=== PATIENT | female | born 1930 | race Hispanic/Latino ===

== ENCOUNTER → 2018-01-29 | Outpatient (CLI) | payer MEDICARE ==
[~2018-01-29] MED LIST: IOHEXOL-350 75 ML VIAL IV ONE
== END | disposition home or self-care (01) ==
LOC: RAH 08:26
PROVIDERS: ATTEND Family Medicine
DX: R22.41 Localized swelling, mass and lump, right lower limb (principal)
CPT/HCPCS: 73702; Q9967

== ENCOUNTER 2018-02-25 07:06 | Day surgery (SDC) | payer MEDICARE ==
[~2018-02-25] VITALS: Ht 147.3 cm; Wt 53.1 kg
[2018-02-25 07:40] VITALS: BP 151/70
[2018-02-25 07:57] LABS: BASOPHILS % (AUTO) 0.3 % (0.0-5.0); EOSINOPHILS % (AUTO) 1.5 % (0.0-8.0); HEMATOCRIT 34.3 % (36-48); LYMPHOCYTES % (AUTO) 16.8 % (21.0-51.0); MEAN CORPUSCULAR HGB CONC 33.4 g/dL (32.0-36.0); MEAN CORPUSCULAR VOLUME 89.8 fL (79-99); MONOCYTES % (AUTO) 10.3 % (3.0-13.0); NEUTROPHILS % (AUTO) 71.1 % (40.0-77.0); PLATELET COUNT (AUTO) 179 K/uL (130-400); RED BLOOD CELL COUNT(AUTO) 3.82 MIL/uL (4.00-5.50); RED CELL DISTRIBUTION WIDTH 13.9 % (11.0-15.5); WHITE BLOOD COUNT (AUTO) 5.8 K/uL (4.8-10.8)
[2018-02-25 08:07] LABS: CREATININE 1.1 mg/dL (0.5-1.5); POTASSIUM 4.5 mmol/L (3.5-5.1)
[2018-02-25 08:27] LABS: INR 1.05 (0.85-1.15); PARTIAL THROMBOPLASTIN TIME 30.6 SEC (26.3-35.5)
[2018-02-25] MEDS ORDERED: SODIUM CHLORIDE 0.9% 1000ML 1,000 ML IV ONE (08:50)
[2018-02-25] MEDS ORDERED: FENTANYL CITRATE PF 50 MCG/1 ML 2ML VIAL ONE (09:21)
[2018-02-25] MEDS ORDERED: MIDAZOLAM HCL 1 MG/ML 2ML VIAL ONE (09:21)
[2018-02-25 09:52] VITALS: BP 151/54
[2018-02-25 10:08] VITALS: BP 149/64
[2018-02-25 10:24] VITALS: BP 147/56
[2018-02-25 10:40] VITALS: BP 148/64
== END 2018-02-25 10:50 | disposition home or self-care (01) ==
LOC: RAH 07:06 → EDSTATUS 08:00 → RAH 10:50
PROVIDERS: ATTEND Internal Medicine Hematology & Oncology
DX: R22.41 Localized swelling, mass and lump, right lower limb (principal); I10 Essential (primary) hypertension; E78.5 Hyperlipidemia, unspecified; G47.00 Insomnia, unspecified; Z98.890 Other specified postprocedural states; Z90.710 Acquired absence of both cervix and uterus; Z79.01 Long term (current) use of anticoagulants; Z79.899 Other long term (current) drug therapy; Z88.8 Allergy status to other drugs, medicaments and biological substances; Z80.9 Family history of malignant neoplasm, unspecified; Z82.49 Family history of ischemic heart disease and other diseases of the circulatory system
CPT/HCPCS: 27040; 36415; 77012; 80048; 82948 ×2; 85025; 85610; 85730; 87071; 87205; 88304; A4606; J7030; J2250; J3010

== ENCOUNTER 2018-05-06 08:59 | Day surgery (SDC) | payer MEDICARE ==
[2018-05-03 15:44] LABS: BASOPHILS % (AUTO) 0.3 % (0.0-5.0); EOSINOPHILS % (AUTO) 1.5 % (0.0-8.0); HEMATOCRIT 37.1 % (36-48); MEAN CORPUSCULAR HEMOGLOBIN 28.6 pg (27.0-33.0); MEAN CORPUSCULAR HGB CONC 32.7 g/dL (32.0-36.0); MEAN CORPUSCULAR VOLUME 87.4 fL (79-99); MONOCYTES % (AUTO) 7.9 % (3.0-13.0); NEUTROPHILS % (AUTO) 75.3 % (40.0-77.0); PLATELET COUNT (AUTO) 198 K/uL (130-400); RED BLOOD CELL COUNT(AUTO) 4.25 MIL/uL (4.00-5.50); RED CELL DISTRIBUTION WIDTH 14.5 % (11.0-15.5); WHITE BLOOD COUNT (AUTO) 8.1 K/uL (4.8-10.8)
[2018-05-03 15:46] LABS: BILIRUBIN,URINE Negative (NEGATIVE); COLOR,URINE Yellow (YELLOW); GLUCOSE, URINE (UA) Negative (NEGATIVE); KETONES,URINE Trace mg/dL (NEGATIVE); LEUKOCYTE ESTERASE ,URINE Negative (NEGATIVE); NITRATE,URINE Negative (NEGATIVE); OCCULT BLOOD,URINE Negative (NEGATIVE); PROTEIN,URINE 300 (NEGATIVE)
[2018-05-03 15:48] LABS: APPEARANCE,URINE CLEAR (CLEAR)
[2018-05-03 15:52] LABS: BACTERIA,URINE Rare /HPF (None Seen); RBC,URINE 0-1 /HPF (0-1); WBC,URINE 0-1 /HPF (0-1)
[2018-05-03 15:53] LABS: SQUAMOUS EPITHELIAL CELL,UR Rare /HPF (0-2)
[2018-05-03 16:03] LABS: CREATININE 0.9 mg/dL (0.5-1.5); POTASSIUM 4.3 mmol/L (3.5-5.1)
[2018-05-03 17:22] VITALS: BP 181/76
[2018-05-06] VITALS (18 sets, daily range): BP systolic 140–171; BP diastolic 57–78
[~2018-05-06] VITALS: Ht 162.6 cm; Wt 51.7 kg
[~2018-05-06 08:59] MED LIST changes: +AMLO5TAB9 PO; +ASPI-1181 PO; +GLIP5TAB11 PO; -IOHEXOL-350 75 ML VIAL IV ONE; +LABE100T5 PO; +LISI40TA4 PO; +ROSU5TAB11 PO; +TYLENOL PO; +[UNRECOGNIZED DRUG - OTHER] PO
--- NOTE | 2018-05-06 09:47 | NUR ---
ACETAMINOPHEN ALLERGY PER SON, PT NOT ALLERGIC TO TYLENOL. PT IS TAKING TYLENOL HOME MED.
[2018-05-06] MEDS: CEFAZOLIN SODIUM 1 GM VIAL IVP SCH ×2 (10:00→13:52)
[2018-05-06] MEDS ORDERED: SODIUM CHLORIDE 0.9% 1000ML 1,000 ML IV ONE (10:12)
[2018-05-06] MEDS ORDERED: CEFAZOLIN SODIUM 1 GM VIAL ONE (12:38)
[2018-05-06] MEDS ORDERED: LIDOCAINE PF 2% 5ML ABBOJECT ONE (13:09)
[2018-05-06] MEDS ORDERED: PROPOFOL 10 MG/ML 20ML VIAL IV ONE ×2 (13:10→16:01)
[2018-05-06] MEDS ORDERED: ONDANSETRON HCL 4 MG/2 ML VIAL ONE (13:10)
[2018-05-06] MEDS ORDERED: ROCURONIUM 10MG/1ML SYR 10 MG/ML ML ONE ×2 (13:10→14:24)
[2018-05-06] MEDS ORDERED: FENTANYL CITRATE PF 50 MCG/1 ML 2ML VIAL ONE (14:25)
[2018-05-06] MEDS ORDERED: GLYCOPYRROLATE 1 MG/5 ML SYRINGE ONE (15:27)
[2018-05-06] MEDS ORDERED: NEOSTIGMINE 5MG/5ML SYR IV ONE ×2 (15:27→16:03)
[2018-05-06] MEDS ORDERED: TRAM1TAB PO (15:56)
[2018-05-06] MEDS ORDERED: CEPH500B PO (15:56)
[2018-05-06] MEDS ORDERED: NALOXONE HCL 0.4 MG/1 ML ML ONE (16:24)
--- NOTE | 2018-05-06 17:04 | NUR ---
LLUVIA BARRETT TO SEE PT, PT ASSESSED, OKAYED TO TRANSFER TO DAY PT. Addendum: 05/06/18 at 1705 by LEI SANDOVAL RN RN Amended: Links added.
--- NOTE | 2018-05-06 17:05 | NUR ---
NEW RECEIVED PT FROM PACU, S/P RIGHT HIP OPEN BX, DRESSING TO RIGHT HIP DRY AND INTACT, NEUROVACULAR CHECK WNL. VS STABLE ON ARRIVAL . PT SEEMED DISORIENTED. PT SPEAKING IN SMALL PHRASES. PT ORIENTED TO NAME ONLY. FAMILY AT BEDSIDE. STATES SHES VERY SENSITIVE WITH ANESTHESIA.
--- NOTE | 2018-05-06 17:46 | NUR ---
DC DC INSTRUCTIONS GIVEN TO PT'S AFSHAN AMIN, INSTRUCTED TO F/U WITH DR. MARCUS 05/09/18,INSTRUCTED ON NEW MED REGIMEN AND POSSIBLE SIDE EFFECTS. PT CONTINUES DISORIENTED AND VERY DROWSY, VS STABLE AT THIS TIME, AT BASELINE. PT AFSHAN AMIN STATES HIS MOM HAS GOTTEN LIKE THAT BEFORE WITH ANESTHESIA , "IT WILL WORE OFF" , DRESSING TO RIGHT HIP DRY AND INTACT INSTRUCTED TO KEEP CLEAN AND DRY AT ALL TIMES. PT GETTING DRESS WITH HUMID SYSTEM OPERATOR ASSISTANCE AND WILL BE DISCHARGE HOME ONCE READY. PIV REMOVED TO LEFT ARM. SITE ASYMTOMATIC. .
--- NOTE | 2018-05-06 18:05 | NUR ---
IV IVF COMPLETED AT THIS TIME,
--- NOTE | 2018-05-06 18:05 | NUR ---
DC PT DC HOME VIA WC, NO DISTRESS NOTED. ACCOMPANIED BY SON
== END 2018-05-06 18:05 | disposition home or self-care (01) ==
LOC: DAHIP 08:59 → DAH 08:59 → UNDOADMIN 08:59 → EDSTATUS 14:45 → DAH 18:05
PROVIDERS: ATTEND Orthopaedic Surgery
DX: M85.58 Aneurysmal bone cyst, other site (principal); R22.41 Localized swelling, mass and lump, right lower limb; Z86.73 Personal history of transient ischemic attack (TIA), and cerebral infarction without residual deficits; E78.5 Hyperlipidemia, unspecified; F03.90 Unspecified dementia, unspecified severity, without behavioral disturbance, psychotic disturbance, mood disturbance, and anxiety; Z96.641 Presence of right artificial hip joint; Z98.890 Other specified postprocedural states; Z88.8 Allergy status to other drugs, medicaments and biological substances; Z82.49 Family history of ischemic heart disease and other diseases of the circulatory system; Z83.3 Family history of diabetes mellitus; Z79.899 Other long term (current) drug therapy; M25.551 Pain in right hip; I10 Essential (primary) hypertension; E11.9 Type 2 diabetes mellitus without complications; Z79.01 Long term (current) use of anticoagulants; Z79.84 Long term (current) use of oral hypoglycemic drugs
CPT/HCPCS: 27052; 36415; 76000; 80048; 81001; 82948 ×2; 85025; 86850; 86900; 86901; 87070; 87076; 87205; 88304; 88331; 88333; 88341; 88342; A4218; A4649 ×5; A4930 ×2; A6219; A6223; J0690 ×2; J2001; J2310; J2405; J2704 ×2; J2710 ×2; J3010; J3490; J7030

== ENCOUNTER → 2018-06-11 | Outpatient (CLI) | payer MEDICARE ==
[~2018-06-11] MED LIST changes: +CEPH500B PO; +GADODIAMIDE 10 MMOL/20 ML ML IV ONE; +TRAM1TAB PO
== END | disposition home or self-care (01) ==
LOC: RAH 15:28
PROVIDERS: ATTEND Orthopaedic Surgery
DX: K57.90 Diverticulosis of intestine, part unspecified, without perforation or abscess without bleeding (principal); R19.00 Intra-abdominal and pelvic swelling, mass and lump, unspecified site; Z96.641 Presence of right artificial hip joint
CPT/HCPCS: 72197; A9579

== ENCOUNTER 2019-06-26 13:28 | Inpatient (IN) | payer MEDICARE ==
[~2019-06-26] VITALS: Ht 157.5 cm; Wt 58.2 kg
[~2019-06-26 13:28] MED LIST changes: +AMLO-257 PO; -AMLO5TAB9 PO; -ASPI-1181 PO; +ASPI-1443 PO; -GADODIAMIDE 10 MMOL/20 ML ML IV ONE; -ROSU5TAB11 PO; +ROSU5TAB12 PO
[2019-06-26 14:12] LABS: BASOPHILS % (AUTO) 0.1 % (0.0-5.0); EOSINOPHILS % (AUTO) 0.7 % (0.0-8.0); HEMATOCRIT 29.1 % (36-48); LYMPHOCYTES % (AUTO) 8.3 % (21.0-51.0); MEAN CORPUSCULAR HEMOGLOBIN 29.2 pg (27.0-33.0); MEAN CORPUSCULAR HGB CONC 31.6 g/dL (32.0-36.0); MEAN CORPUSCULAR VOLUME 92.4 fL (79-99); MONOCYTES % (AUTO) 7.7 % (3.0-13.0); NEUTROPHILS % (AUTO) 82.8 % (40.0-77.0); PLATELET COUNT (AUTO) 237 K/uL (130-400); RED BLOOD CELL COUNT(AUTO) 3.15 MIL/uL (4.00-5.50); RED CELL DISTRIBUTION WIDTH 15.1 % (11.0-15.5); WHITE BLOOD COUNT (AUTO) 6.8 K/uL (4.8-10.8)
[2019-06-26 14:28] LABS: INR 1.05 (0.85-1.15); PARTIAL THROMBOPLASTIN TIME 29.2 SEC (26.3-35.5); PROTHROMBIN TIME 11.3 SEC (9.6-11.6)
[2019-06-26 14:40] LABS: ALBUMIN 2.1 g/dL (3.5-5.0); BILIRUBIN,TOTAL 0.4 mg/dL (0.2-1.0); CREATININE 2.4 mg/dL (0.5-1.5); POTASSIUM 4.8 mmol/L (3.5-5.1); TOTAL PROTEIN, SERUM 5.1 g/dL (6.0-8.3)
[2019-06-26 14:46] LABS: B-TYPE NATRIURETIC PEPTIDE 314 pg/mL (0-100)
[2019-06-26] MEDS ORDERED: DEXTROSE 50%-WATER 50 ML DISP.SYRIN IV ONE ×2 (14:46→22:12)
[2019-06-26 16:30] LABS: APPEARANCE,URINE Cloudy (CLEAR); BILIRUBIN,URINE Negative (NEGATIVE); COLOR,URINE Dark Yellow (YELLOW); GLUCOSE, URINE (UA) Negative (NEGATIVE); KETONES,URINE Trace mg/dL (NEGATIVE); LEUKOCYTE ESTERASE ,URINE Trace (NEGATIVE); NITRATE,URINE Negative (NEGATIVE); OCCULT BLOOD,URINE Negative (NEGATIVE); PROTEIN,URINE 300 mg/dL (NEGATIVE)
[2019-06-26 17:01] LABS: BACTERIA,URINE Few /HPF (None Seen); MUCUS,URINE Few LPF (None Seen); SQUAMOUS EPITHELIAL CELL,UR Few /HPF (0-2)
[2019-06-26] MEDS ORDERED: ONDANSETRON HCL 4 MG/2 ML VIAL IV PRN (19:45)
[2019-06-26] MEDS ORDERED: ACETAMINOPHEN 325 MG TAB PO PRN (19:45)
[2019-06-26 20:18] LABS: HEMOGLOBIN A1C 5.3 % (4.0-6.0)
[2019-06-26 20:27] LABS: THYROID STIMULATING HORMONE 6.61 uIU/mL (0.36-3.74)
[2019-06-26] MEDS ORDERED: DEXTROSE 10%-WATER 1,000 ML IV ONE (22:12)
--- NOTE | 2019-06-26 23:07 | NUR ---
ABG PERFORMED AT BEDSIDE BY RT. PT NICKO WELL.
[2019-06-26 23:11] LABS: ABG BASE EXCESS -2.5 mmol/L (-2.0-3.0); ABG HCO3 21.5 mmol/L (21.0-28.0); ABG OXYGEN SATURATION 96.2 % (95.0-99.0); ABG PCO2 36 mmHg (32-45)
[2019-06-26 23:13] VITALS: BP 155/61
[2019-06-26] MEDS ORDERED: VIT1CAPS47 PO (23:36)
[2019-06-26] MEDS ORDERED: DOCU-116 PO (23:36)
[2019-06-26] MEDS ORDERED: FERR325T22 PO (23:36)
--- NOTE | 2019-06-26 23:43 | NUR ---
ADMISSION PT A POOR HISTORIAN WITH A PMHX OF DEMENTIA. OBTAINED INFORMATION FROM PT/ MEDICAL RECORD. UNABLE TO OBTAIN SIGNATURE FOR ADMISSION PACKET- PT ALONE WITH NO FAMILY AT BEDSIDE. BED LOCKED IN LOWEST POSITION. CALL LIGHT WITHIN REACH. DOOR LEFT OPEN TO MONITOR . BS ON FLOOR ARRIVAL 124. VS STABLE.
--- NOTE | 2019-06-27 00:07 | NUR ---
PAGED PROPERTY OFFICER INFORMED CONRAD COOK THAT HOME MEDICATIONS HAVE BEEN ENTERED INTO [facility] PENDING TO BE REVIEWED.
[2019-06-27] MEDS ORDERED: GLUCAGON 1MG KIT 1 MG ML IM PRN (00:15)
[2019-06-27] MEDS ORDERED: DEXTROSE 50%-WATER 50 ML DISP.SYRIN IV PRN (00:15)
[2019-06-27 03:40] VITALS: BP 168/65
[2019-06-27] MEDS: ACETAMINOPHEN 325 MG TAB PO PRN ×2 (04:16→21:29)
[2019-06-27 05:38] LABS: BASOPHILS % (AUTO) 0.3 % (0.0-5.0); EOSINOPHILS % (AUTO) 2.2 % (0.0-8.0); LYMPHOCYTES % (AUTO) 20.2 % (21.0-51.0); MEAN CORPUSCULAR HEMOGLOBIN 28.6 pg (27.0-33.0); MEAN CORPUSCULAR HGB CONC 30.8 g/dL (32.0-36.0); MEAN CORPUSCULAR VOLUME 92.9 fL (79-99); MONOCYTES % (AUTO) 11.1 % (3.0-13.0); NEUTROPHILS % (AUTO) 65.9 % (40.0-77.0); PLATELET COUNT (AUTO) 222 K/uL (130-400); RED CELL DISTRIBUTION WIDTH 15.2 % (11.0-15.5); WHITE BLOOD COUNT (AUTO) 5.8 K/uL (4.8-10.8)
[2019-06-27 05:57] LABS: ALBUMIN 1.7 g/dL (3.5-5.0); BILIRUBIN,TOTAL 0.3 mg/dL (0.2-1.0); CREATININE 2.5 mg/dL (0.5-1.5); TOTAL PROTEIN, SERUM 4.4 g/dL (6.0-8.3)
[2019-06-27 08:00] VITALS: BP 153/66
[2019-06-27] MEDS: FAMOTIDINE/PF 20 MG/2 ML VIAL IV SCH (10:25)
[2019-06-27 11:00] VITALS: BP 139/66
--- NOTE | 2019-06-27 11:05 | NUR ---
INITIAL SW spoke with patient's son, Jonnie Cavazos, , [phone]. No home services. Son helps out with housekeeping, transportation and meals. DME: wheelchair, walker with seat, 2 wheel walker. BPM, glucometer (no insulin). Patient is able to complete ADL's independently but does not drive. PCP is Dr. Chacho Aden. Pharmacy is [email or web address]. Son requesting [facility] be referred to [facility] for [facility] due to progressive dementia. Son states it has become more and more difficult to care for patient safely at home. SUDHAKAR/Choice completed for [facility]. SUDHAKAR/Choice placed in chart. Meg SR. Addendum: 06/27/19 at 1109 by GINA CAO SS Amended: Links added.
[2019-06-27 12:03] LABS: HEMOGLOBIN A1C 5.2 % (4.0-6.0)
--- NOTE | 2019-06-27 13:36 | NUR ---
RD NOTIFICATION Pt admitted with hypoglycemia, Acute kidney failure, generalized weakness, dementia. Pending TUFTING MACHINE OPERATOR SINGLE NEEDLE nelly. Renal Non Dialysis diet order in place. Recommend 30mL Promod TID, feeding assistance as needed. TRACY to continue to monitor. Addendum: 06/27/19 at [address] Amended: Links added.
[2019-06-27] MEDS: SODIUM CHLORIDE 0.9% 1000ML 1,000 ML IV SCH (14:29)
[2019-06-27] MEDS: CEFTRIAXONE SODIUM 1 GM IVP SCH ×2 (14:29→23:33)
--- NOTE | 2019-06-27 15:03 | NUR ---
sent pkt to [facility] and rec'd acceptance back. Pending Covid form
[2019-06-27 16:00] VITALS: BP 128/74
[2019-06-27] MEDS ORDERED: Vitamin B Complex/Vit C/Folic Acid PO SCH (16:00)
[2019-06-27 19:00] VITALS: BP 152/66
[2019-06-27 23:00] VITALS: BP 173/68
[2019-06-28] MEDS: HYDRALAZINE HCL 20 MG/ML VIAL ONE ×2 (01:11→01:13)
[2019-06-28 03:00] VITALS: BP_SYST 177; BP_SYST 182; BP_DIAS 62; BP_DIAS 70
[2019-06-28 04:53] LABS: BASOPHILS % (AUTO) 0.3 % (0.0-5.0); EOSINOPHILS % (AUTO) 3.2 % (0.0-8.0); LYMPHOCYTES % (AUTO) 19.9 % (21.0-51.0); MEAN CORPUSCULAR HEMOGLOBIN 28.4 pg (27.0-33.0); MEAN CORPUSCULAR HGB CONC 31.1 g/dL (32.0-36.0); MEAN CORPUSCULAR VOLUME 91.5 fL (79-99); MONOCYTES % (AUTO) 11.1 % (3.0-13.0); NEUTROPHILS % (AUTO) 64.3 % (40.0-77.0); PLATELET COUNT (AUTO) 247 K/uL (130-400); RED BLOOD CELL COUNT(AUTO) 3.06 MIL/uL (4.00-5.50); RED CELL DISTRIBUTION WIDTH 15.2 % (11.0-15.5); WHITE BLOOD COUNT (AUTO) 6.9 K/uL (4.8-10.8)
[2019-06-28 05:36] LABS: ALBUMIN 1.8 g/dL (3.5-5.0); BILIRUBIN,TOTAL 0.2 mg/dL (0.2-1.0); CREATININE 2.3 mg/dL (0.5-1.5); THYROID STIMULATING HORMONE 9.4 uIU/mL (0.36-3.74); TOTAL PROTEIN, SERUM 4.9 g/dL (6.0-8.3)
[2019-06-28 05:40] LABS: % IRON SATURATION 18.3 % (22-44)
[2019-06-28] MEDS: SODIUM CHLORIDE 0.9% 1000ML 1,000 ML IV SCH (07:15)
[2019-06-28] MEDS: FAMOTIDINE/PF 20 MG/2 ML VIAL IV SCH (07:57)
[2019-06-28] MEDS: HYDRALAZINE HCL 20 MG/ML VIAL IV PRN (07:58)
[2019-06-28] MEDS: THIAMINE HCL 100 MG/ML 2ML VIAL IVP SCH (07:58)
[2019-06-28 08:00] VITALS: BP 182/75
[2019-06-28] MEDS: AMLODIPINE BESYLATE 5 MG TAB PO SCH (10:39)
[2019-06-28] MEDS: Vitamin B Complex/Vit C/Folic Acid PO SCH (10:39)
[2019-06-28] MEDS: LABETALOL HCL 100 MG TABLET PO SCH (10:40)
[2019-06-28] MEDS: CEFTRIAXONE SODIUM 1 GM IVP SCH ×2 (10:42→23:55)
[2019-06-28 11:23] VITALS: BP 175/65
[2019-06-28] MEDS ORDERED: COMPOUND IV MISC 1 EACH IVSOLN MISC PRN (13:15)
[2019-06-28] MEDS: IRON SUCROSE COMPLEX 100 MG in SODIUM CHLORIDE 0.9% 50 ML IV SCH (15:44)
[2019-06-28] MEDS: FUROSEMIDE 10 MG/ML 2ML VIAL IV SCH (15:45)
[2019-06-28 16:00] VITALS: BP 150/83
[2019-06-28 19:00] VITALS: BP 161/67
[2019-06-28 23:00] VITALS: BP 161/63
[2019-06-29] MEDS: FUROSEMIDE 10 MG/ML 2ML VIAL IV SCH ×2 (00:29→18:13)
[2019-06-29] MEDS: HYDRALAZINE HCL 20 MG/ML VIAL IV PRN (00:37)
[2019-06-29 03:00] VITALS: BP 152/56
[2019-06-29 04:56] LABS: BASOPHILS % (AUTO) 0.5 % (0.0-5.0); EOSINOPHILS % (AUTO) 3.5 % (0.0-8.0); HEMATOCRIT 28.3 % (36-48); LYMPHOCYTES % (AUTO) 19.9 % (21.0-51.0); MEAN CORPUSCULAR HEMOGLOBIN 28.4 pg (27.0-33.0); MEAN CORPUSCULAR HGB CONC 31.4 g/dL (32.0-36.0); MEAN CORPUSCULAR VOLUME 90.4 fL (79-99); NEUTROPHILS % (AUTO) 64.6 % (40.0-77.0); PLATELET COUNT (AUTO) 260 K/uL (130-400); RED BLOOD CELL COUNT(AUTO) 3.13 MIL/uL (4.00-5.50); RED CELL DISTRIBUTION WIDTH 15.4 % (11.0-15.5); WHITE BLOOD COUNT (AUTO) 6.6 K/uL (4.8-10.8)
[2019-06-29 05:14] LABS: ALBUMIN 1.9 g/dL (3.5-5.0); BILIRUBIN,TOTAL 0.2 mg/dL (0.2-1.0); CREATININE 2.3 mg/dL (0.5-1.5); POTASSIUM 3.7 mmol/L (3.5-5.1); TOTAL PROTEIN, SERUM 4.9 g/dL (6.0-8.3)
[2019-06-29] MEDS: LEVOTHYROXINE 25 MCG TABLET PO SCH (06:15)
[2019-06-29 08:00] VITALS: BP 159/61
[2019-06-29] MEDS ORDERED: IRON POLYSACCHARIDES COMPLEX 150 MG CAPSULE PO SCH (09:00)
[2019-06-29] MEDS: FAMOTIDINE/PF 20 MG/2 ML VIAL IV SCH (09:15)
[2019-06-29] MEDS: LABETALOL HCL 100 MG TABLET PO SCH (09:15)
[2019-06-29] MEDS: AMLODIPINE BESYLATE 5 MG TAB PO SCH (09:15)
[2019-06-29] MEDS: THIAMINE HCL 100 MG/ML 2ML VIAL IVP SCH (09:15)
[2019-06-29] MEDS: IRON SUCROSE COMPLEX 100 MG in SODIUM CHLORIDE 0.9% 50 ML IV SCH (09:15)
[2019-06-29] MEDS: Vitamin B Complex/Vit C/Folic Acid PO SCH (09:15)
--- NOTE | 2019-06-29 10:08 | NUR ---
[facility] ACC[facility] cm spoke to Clare with [facility]. States pt has been accepted and needing COVID form signed within 24 hours of discharge. CM to f/u. Addendum: 06/29/19 at 1010 by STEPHEN ABREU CM Amended: Links added.
[2019-06-29 11:00] VITALS: BP 139/58
[2019-06-29] MEDS: CEFTRIAXONE SODIUM 1 GM IVP SCH ×2 (14:40→23:08)
[2019-06-29 16:00] VITALS: BP 147/64
[2019-06-29 19:54] VITALS: BP 171/62
[2019-06-29] MEDS ORDERED: LABETALOL HCL 100 MG TABLET PO SCH (21:00)
[2019-06-29 23:23] VITALS: BP 152/63
[2019-06-30 03:48] VITALS: BP 150/64
[2019-06-30 05:06] LABS: BASOPHILS % (AUTO) 0.3 % (0.0-5.0); EOSINOPHILS % (AUTO) 2.8 % (0.0-8.0); HEMATOCRIT 27.6 % (36-48); LYMPHOCYTES % (AUTO) 17.3 % (21.0-51.0); MEAN CORPUSCULAR HEMOGLOBIN 28.6 pg (27.0-33.0); MEAN CORPUSCULAR HGB CONC 31.5 g/dL (32.0-36.0); MEAN CORPUSCULAR VOLUME 90.8 fL (79-99); MONOCYTES % (AUTO) 10.6 % (3.0-13.0); PLATELET COUNT (AUTO) 241 K/uL (130-400); RED BLOOD CELL COUNT(AUTO) 3.04 MIL/uL (4.00-5.50); RED CELL DISTRIBUTION WIDTH 15.5 % (11.0-15.5); WHITE BLOOD COUNT (AUTO) 6.1 K/uL (4.8-10.8)
[2019-06-30 05:26] LABS: ALBUMIN 1.9 g/dL (3.5-5.0); BILIRUBIN,TOTAL 0.3 mg/dL (0.2-1.0); CREATININE 2.2 mg/dL (0.5-1.5); POTASSIUM 3.6 mmol/L (3.5-5.1); TOTAL PROTEIN, SERUM 4.9 g/dL (6.0-8.3)
[2019-06-30] MEDS: LEVOTHYROXINE 25 MCG TABLET PO SCH (05:57)
[2019-06-30] MEDS: FUROSEMIDE 10 MG/ML 2ML VIAL IV SCH (05:58)
[2019-06-30 08:20] VITALS: BP 176/62
[2019-06-30] MEDS ORDERED: LISINOPRIL 40 MG TABLET PO SCH (09:00)
[2019-06-30] MEDS: AMLODIPINE BESYLATE 5 MG TAB PO SCH (10:33)
[2019-06-30] MEDS: Vitamin B Complex/Vit C/Folic Acid PO SCH (10:33)
[2019-06-30] MEDS: LABETALOL HCL 100 MG TABLET PO SCH (10:34)
[2019-06-30] MEDS: FAMOTIDINE/PF 20 MG/2 ML VIAL IV SCH (10:47)
[2019-06-30] MEDS: THIAMINE HCL 100 MG/ML 2ML VIAL IVP SCH (10:47)
[2019-06-30] MEDS: CEFTRIAXONE SODIUM 1 GM IVP SCH (10:57)
[2019-06-30] MEDS: IRON SUCROSE COMPLEX 100 MG in SODIUM CHLORIDE 0.9% 50 ML IV SCH (11:13)
[2019-06-30 11:40] VITALS: BP 164/65
--- NOTE | 2019-06-30 14:05 | NUR ---
SENT COVID FORM, CONTACTED [facility], WAITING ON DR. RIVERA TO CLEAR MEDS THEN PATIENT CAN BE DISCHARGED
[2019-06-30 14:57] LABS: APPEARANCE,URINE Clear (CLEAR); BILIRUBIN,URINE Negative (NEGATIVE); COLOR,URINE Yellow (YELLOW); GLUCOSE, URINE (UA) Negative (NEGATIVE); KETONES,URINE Negative (NEGATIVE); LEUKOCYTE ESTERASE ,URINE Trace (NEGATIVE); NITRATE,URINE Negative (NEGATIVE); OCCULT BLOOD,URINE Negative (NEGATIVE); PROTEIN,URINE 300 mg/dL (NEGATIVE); UROBILINOGEN,URINE 0.2 mg/dL (0.2-1.0)
--- NOTE | 2019-06-30 14:57 | NUR ---
BM PT HAS HAD 2 BM'S TODAY WITHOUT ANY BLOOD, REDNESS NOTED. SOFT.
[2019-06-30 15:17] LABS: BACTERIA,URINE Few /HPF (None Seen); RBC,URINE None Seen /HPF (0-1); SQUAMOUS EPITHELIAL CELL,UR 0-2 /HPF (0-2)
--- NOTE | 2019-06-30 16:20 | NUR ---
[facility] REPORT GIVEN TO Jelena GARCIA LVN AT [facility]. CLOTHES AND MEDICINES SENT WITH PT IN BAG TO [facility]. SON NOTIFIED OF PTS ADMISSION TO AND TRASNPORT TO [facility]. SON, ELOISA VERBALIZED UNDERSTANDING.
--- NOTE | 2019-06-30 16:37 | NUR ---
DISCHARGE PT DISCHARGED ALONG WITH BELONGINGS. DENIES ANY PAIN.
[2019-07-01] MEDS ORDERED: FUROSEMIDE 20 MG TABLET PO SCH (09:00)
== END 2019-06-30 17:00 | DRG 682 ==
LOC: EDH 13:28 → EDHIP 19:35 → 3AH 22:23
PROVIDERS: ADMIT Hospitalist; ATTEND Hospitalist
DX: N17.9 Acute kidney failure, unspecified (principal); G92 Toxic encephalopathy; N39.0 Urinary tract infection, site not specified; M62.82 Rhabdomyolysis; E44.0 Moderate protein-calorie malnutrition; N18.9 Chronic kidney disease, unspecified; E78.5 Hyperlipidemia, unspecified; F03.90 Unspecified dementia, unspecified severity, without behavioral disturbance, psychotic disturbance, mood disturbance, and anxiety; I12.9 Hypertensive chronic kidney disease with stage 1 through stage 4 chronic kidney disease, or unspecified chronic kidney disease; Z60.2 Problems related to living alone; W01.0XXA Fall on same level from slipping, tripping and stumbling without subsequent striking against object, initial encounter; Y93.89 Activity, other specified; Y92.89 Other specified places as the place of occurrence of the external cause; Y99.8 Other external cause status; Z79.84 Long term (current) use of oral hypoglycemic drugs; Z79.899 Other long term (current) drug therapy; Z88.8 Allergy status to other drugs, medicaments and biological substances; T38.3X5A Adverse effect of insulin and oral hypoglycemic [antidiabetic] drugs, initial encounter; E16.0 Drug-induced hypoglycemia without coma; Z86.73 Personal history of transient ischemic attack (TIA), and cerebral infarction without residual deficits; Z83.3 Family history of diabetes mellitus; Z82.49 Family history of ischemic heart disease and other diseases of the circulatory system; D63.8 Anemia in other chronic diseases classified elsewhere
CPT/HCPCS: 36415; 36600; 70450; 71045; 76770; 80053; 80061; 81001; 82140; 82550; 82728; 82803; 82948; 83036; 83540; 83550; 83605; 83690; 83880; 84145; 84443; 84484; 85025; 85610; 85730; 87088; 93005; 97039; G0378; J0360; J0696; J1756; J1940; J3411; J3490; J7030; J7070